=== PATIENT | male | born 1985 | race Caucasian/White ===

== ENCOUNTER 2018-05-27 16:17 | Emergency (ER) | payer MEDICARE ==
--- NOTE | 2018-05-27 17:00 | ED Physician Chart ---
ED Chief Complaint/HPI - Patient Information Date Seen:: 05/27/18 Time Seen:: 16:40 Chief Complaint:: Earaches History of Present Illness:: onset x 2 days of intermittent diffuse H/As, and E/As, pt is Deaf; pt denies trauma, LOC, ALOC, AMS, weakness, dizziness, tinnitus, change in hearing, vertigo, S/T, neck pain, cough, C/P, SOB, Abd. 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:: Allergies Allergy/AdvReac Type Severity Reaction Status Date / Time No Known Allergies Allergy Verified 05/27/18 16:37 Vitals:: Vital Signs - 8 hr 05/27/18 16:38 Temp 99.1 F HR 103 RR 18 BP 155/82 O2 Sat % 97 Historian:: Patient Review:: Nurse's Note Reviewed, Old Chart Reviewed <Julio Jones - Last Filed: 05/27/18 17:10> - Patient Information Allergies:: Allergies Allergy/AdvReac Type Severity Reaction Status Date / Time No Known Allergies Allergy Verified 05/27/18 16:37 Vitals:: Vital Signs - 8 hr 05/27/18 05/27/18 16:38 19:11 Temp 99.1 F HR 103 RR 18 94 BP 155/82 142/92 O2 Sat % 97 95 <Maikol Peralta - Last Filed: 05/27/18 21:13> ED Review of Systems - Review of Systems General/Constitutional: No fever, No chills, No weight loss, No weakness, No diaphoresis, No edema, No loss of appetite Skin: No skin lesions, No rash, No bruising Head: Headache, No light-headedness Eyes: No loss of vision, No pain, No diplopia ENT: Earache, No nasal drainage, No sore throat, No tinnitus Neck: No neck pain, No swelling, No thyromegaly, No stiffness, No mass noted Cardio Vascular: No chest pain, No palpitations, No PND, No orthopnea, No edema Pulmonary: No SOB, No cough, No sputum, No wheezing GI: No nausea, No vomiting, No diarrhea, No pain, No melena, No hematochezia, No constipation, No hematemesis G/U: No dysuria, No frequency, No hematuria, No nacturia Musculoskeletal: No bone or joint pain, No back pain, No muscle pain Endocrine: No polyuria, No polydipsia Psychiatric: No prior psych history, No depression, No anxiety, No suicidal ideation, No homicidal ideation, No auditory hallucination, No visual hallucination Hematopoietic: No bruising, No lymphadenopathy Allergic/Immuno: No urticaria, No angioedema Neurological: No syncope, No focal symptoms, No weakness, No paresthesia, Headache, No seizure, No dizziness, No confusion, No vertigo <RobertJulio - Last Filed: 05/27/18 17:10> ED Past Medical History - Past Medical History Obtainable: Yes Past Medical History: Other (Deafness) Family History: HTN Social History: Non Smoker, No Alcohol, No Drug Use, Single, Care Facility Surgical History: None Psychiatricy History: None Medication: Reviewed <RachealpascualparvezJulio Last Filed: 05/27/18 17:10> Family Medical History - Family Member Mother History Unknown: Yes <Julio Jones - Last Filed: 05/27/18 17:10> ED Physical Exam - Physical Examination General/Constitutional: Awake, Well-developed, well-nourished, Alert, No distress, GCS 15, Non-toxic appearing, Ambulatory Head: Atraumatic Eyes: Lids, conjuctiva normal, PERRL, EOMI Skin: Nl inspection, No rash, No skin lesions, No ecchymosis, Well hydrated, No lymphadenopathy ENMT: External ears, nose nl, Nasal exam nl, Lips, teeth, gums nl, Oropharynx nl , Tonsils nl Other ENMT comments:: Ears: TMs: dull and injected Neck: Nontender, Full ROM w/o pain, No JVD, No nuchal rigidity, No bruit, No mass, No stridor Respiratory: Nl effort/Exclusion, Clear to Auscultation, No Wheeze/Rhonchi/Rales Cardio Vascular: RRR, No murmur, gallop, rubs, NL S1 S2, Carotid/Femoral/Distal pulses equal bilaterally GI: No tenderness/rebounding/guarding, No organomegaly, No hernia, Normal BS's, Nondistended, No mass/bruits, No McBurney tenderness Other GI comments:: no pulsatile masses : No CVA tenderness Extremities: No tenderness or effusion, Full ROM, normal strength in all extremities, No edema, Normal digits & nails Neuro/Psych: Alert/oriented, DTR's symmetric, Normal sensory exam, Normal motor strength, Judgement/insight normal, Mood normal, Normal gait, No focal deficits Misc: Normal back, No paraspinal tenderness <Julio Jones - Last Filed: 05/27/18 17:10> ED Labs/Radiology/EKG Results - Lab Results Results: Laboratory Tests 05/27/18 05/27/18 05/27/18 19:10 19:10 19:10 WBC 6.1 RBC 5.60 Hgb 16.1 Hct 47.7 MCV 85.2 MCH 28.8 MCHC Differential 33.8 RDW 12.0 Plt Count 369 MPV 7.9 Neutrophils % 53.4 Lymphocytes % 32.1 Monocytes % 9.9 Eosinophils % 3.9 Basophils % 0.7 ESR PT 9.9 INR 0.95 PTT (Actin FS) 31.0 Sodium 138 Potassium 3.7 Chloride 101 Carbon Dioxide 27.6 Anion Gap 13.1 BUN 18 Creatinine 1.1 Est GFR ( Amer) > 60.0 Est GFR (Non-Af Amer) > 60.0 BUN/Creatinine Ratio 16.4 Glucose 93 Whole Bld Lactic Acid Calcium 10.4 H Total Bilirubin 0.5 AST 34 ALT 67 H Alkaline Phosphatase 67 Creatine Kinase 151 Total Protein 8.1 Albumin 5.0 Globulin 3.1 Albumin/Globulin Ratio 1.6 05/27/18 05/27/18 19:10 19:10 WBC RBC Hgb Hct MCV MCH MCHC Differential RDW Plt Count MPV Neutrophils % Lymphocytes % Monocytes % Eosinophils % Basophils % ESR 4 PT INR PTT (Actin FS) Sodium Potassium Chloride Carbon Dioxide Anion Gap BUN Creatinine Est GFR ( Amer) Est GFR (Non-Af Amer) BUN/Creatinine Ratio Glucose Whole Bld Lactic Acid 1.13 Calcium Total Bilirubin AST ALT Alkaline Phosphatase Creatine Kinase Total Protein Albumin Globulin Albumin/Globulin Ratio <Maikol Peralta - Last Filed: 05/27/18 21:13> ED Septic Shock - . Is Septic Shock (SBP<90, OR Lactate>4 mmol\L) present?: No - <6hrs of presentation: Vital Signs: Vital Signs - 8 hr 05/27/18 16:38 Temp 99.1 F HR 103 RR 18 BP 155/82 O2 Sat % 97 <Julio Jones - Last Filed: 05/27/18 17:10> - <6hrs of presentation: Vital Signs: Vital Signs - 8 hr 05/27/18 05/27/18 16:38 19:11 Temp 99.1 F HR 103 RR 18 94 BP 155/82 142/92 O2 Sat % 97 95 <Maikol Peralta - Last Filed: 05/27/18 21:13> ED Reassessment (Disposition) - Reassessment Reassessment Condition:: Improved - Diagnosis Diagnosis:: Dx: Earaches; Otitis Media; Headaches; Fever <Julio Jones - Last Filed: 05/27/18 17:10> - Reassessment Reassessment:: Patient had right ear pain and was concerned about possible infection of the cochlear implants. WBC 6.1, lactic acid 1.13. Checked ESR and CRP. ESR was normal 4. CRP is still pending. Patient may possibly have otitis externa. For prophylactic reason, Rocephin 1g IM was given. Will discharge patient home with Augmentin 875mg/125mg bid x 5days. Instructed patient to f/u PCP or return to ER if symptoms worsen. - Aftercare/Follow up Instructions Medication Prescribed:: Augmentin 875mg/125mg bid x 5days <Maikol Peralta - Last Filed: 05/27/18 21:13>
[2018-05-27] MEDS ORDERED: cefTRIAXone 1 GM in Sodium Chloride 0.9% 50 ML IV ONE (18:20)
[2018-05-27 19:24] LABS: % BASOPHILS 0.7 % (0.0-2.0); % EOSINOPHILS 3.9 % (0.0-5.0); % LYMPHOCYTES 32.1 % (20.0-50.0); % MONOCYTES 9.9 % (2.0-10.0); % NEUTROPHILS 53.4 % (40.0-80.0); EOSINOPHILE ABSOLUTE 0.2 Th/cmm (0.1-0.4); HEMATOCRIT 47.7 % (41.0-60); HEMOGLOBIN 16.1 gm/dL (12-16); MEAN CELL VOLUME 85.2 fl (80-99); MEAN CORPUSCULAR HEMOGLOBIN 28.8 pg (26.0-30.0); MEAN CORPUSCULAR HGB CONC 33.8 pg (28.0-36.0); MEAN PLATELET VOLUME 7.9 fl; MONOCYTE ABSOLUTE 0.6 Th/cmm (0.3-1.0); NEUTROPHILE ABSOLUTE 3.3 Th/cmm (1.8-8.0); PLATELET COUNT 369 Th/cmm (150-400); WHITE BLOOD COUNT 6.1 Th/cmm (4.8-10.8)
[2018-05-27 19:38] LABS: ALB/GLOB RATIO 1.6 (1.0-1.8); ALKALINE PHOSPHATASE 67 U/L (34-104); ANION GAP 13.1 (7.0-16.0); BILIRUBIN,TOTAL 0.5 mg/dL (0.3-1.0); BUN - UREA NITROGEN 18 mg/dL (7-25); CALCIUM SERUM 10.4 mg/dL (8.6-10.3); CARBON DIOXIDE 27.6 mEq/L (21.0-31.0); CHLORIDE 101 mEq/L (98-107); CREATININE - SERUM 1.1 mg/dL (0.7-1.3); CREATININE KINASE 151 U/L (30-223); GFR AFRICAN-AMERICAN > 60.0 ml/min (>90); GFR NON AFRICAN-AMERICAN > 60.0 ml/min; GLUCOSE 93 mg/dL (70-105); POTASSIUM SERUM 3.7 mEq/L (3.5-5.1); SGOT 34 U/L (13-39); SGPT/ALT 67 U/L (7-52); SODIUM SERUM 138 mEq/L (136-145); TOTAL PROTEIN,SERUM 8.1 gm/dL (6.0-8.3)
[2018-05-27 19:54] LABS: INR 0.95 (0.5-1.4); PROTHROMBIN TIME (TEST) 9.9 SECONDS (9.5-11.5)
--- NOTE | 2018-05-28 08:49 | Diagnostic Imaging Report ---
CHEST X-RAY: AP view INDICATION: pain COMPARISON: None FINDINGS: There is accentuation of of the interstitial lung markings. There is no focal consolidation or pleural effusions The heart is normal in size. The osseous structures demonstrate no acute abnormalities. No evidence of pneumothorax. IMPRESSION: Accentuation of the interstitial lung markings, nonspecific. No focal consolidation identified.
--- NOTE | 2018-05-28 09:21 | Diagnostic Imaging Report ---
Head CT without intravenous contrast Indication: Headaches Comparison: None Technique: Axial images were obtained from the vertex to the skull base without IV contrast. Coronal reconstructions were made. Total DLP: 747 , CTDI37.4 FINDINGS: Exam is limited due to severe streak artifact and postsurgical changes from what appears to be bilateral cochlear implant devices. No gross hemorrhage is identified. The ventricles and basal cisterns are patent. No mass effect or midline shift. Limited assessment for a skull fracture demonstrates no gross skull fracture. No significant focal soft tissue swelling. IMPRESSION: Limited exam due to severe streak artifact from what appears to be bilateral cochlear implant devices. Otherwise no evidence of a gross hemorrhage. Please correlate with clinical findings.
--- NOTE | 2018-05-28 09:26 | Diagnostic Imaging Report ---
CT cervical spine without IV contrast HISTORY: Headaches COMPARISON: None Technique: Axial images were obtained from the skull base to the upper thoracic spine without IV contrast. Multiplanar reconstructions were made. Total DLP: 482, CTDI25 FINDINGS: Images of the cervical spine obtained without contrast demonstrate no evidence of an acute fracture or subluxation. There are mild degenerative changes C6/C7 with 2-3 millimeter posterior disc osteophyte complex at this level. There are areas of diminutive transverse foramen seen at multiple levels throughout the cervical spine most pronounced on the left side. No prevertebral soft tissue swelling. The lung apices are clear. 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 Please correlate with patient's clinical history and old exams. Mild degenerative changes primarily at C6/C7.
== END 2018-05-27 21:20 | disposition home or self-care (01) ==
LOC: ER 16:17
DX: H66.91 Otitis media, unspecified, right ear (principal); R51 Headache; R50.9 Fever, unspecified
CPT/HCPCS: 99284; 96372; 93005; 71045; 70450; 72125; 36415; 83605; 86141; 85025; 85610; 85652; 85730; 82550; 80053; 87040 ×2; J0696; Z7502